=== PATIENT | male | born 1990 | race Caucasian/White ===

== ENCOUNTER 2016-03-26 13:34 | Emergency (ER) | payer MEDICAID ==
[~2016-03-26] VITALS: Ht 172.7 cm; Wt 85.0 kg
[~2016-03-26 13:34] MED LIST: METF-382 PO; METF-385 PO; METO10TA92 PO; PANT40TA3 PO
[2016-03-26 13:40] VITALS: Ht 172.7 cm; Wt 85.0 kg
[2016-03-26] MEDS ORDERED: HYDROmorphONE 2 MG/ML SYG IM STA (13:46)
[2016-03-26] MEDS ORDERED: ONDANSETRON (ODT) 4 MG TAB ODT STA (13:46)
[2016-03-26] MEDS ORDERED: METF-480 PO (14:08)
--- NOTE | 2016-03-26 14:25 | RADRPT ---
PROCEDURE: Left hip series CLINICAL INDICATION: Trauma and pain. TECHNIQUE: 2 views. COMPARISON: None FINDINGS: No fractures are noted. No dislocations are visualized. The hip joint is well maintained. No erosions or irregularity are noted. No subchondral lucencies are visualized. The soft tissues are unremarkable. IMPRESSION: 1. No bony abnormalities are identified. RPTAT: HH .Bear Green MD, MD Date Time Electronically viewed and signed by .Bear Green MD, on 03/26/2016 14:24 .G/
[2016-03-26] MEDS ORDERED: IBUP-1542 PO (14:57)
--- NOTE | 2016-03-26 15:06 | ERD ---
ER Documentation Chief Complaint Date/Time DATE: 03/26/16 TIME: 15:04 Chief Complaint BROUGHT IN VIA EMS DUE TO BACK PAIN DUE TO FALL HPI Patient is a 25-year-old male with diabetes and back pain who presents with left -sided hip pain. He was brought in by ambulance. He had a slip on a wet towel and a fall 1945 minutes ago. He has a history of chronic back pain. He denies incontinence. He denies fevers. He has had no treatment as of yet. Upon review of old medical records this is the patient's first visit to the ER. Review of the emergency department information exchange shows no other visits. He does not know the name of his primary doctor and does not have a pain management doctor. ROS All systems reviewed and are negative except as per history of present illness. Medications Home Meds Active Scripts Ibuprofen* (Motrin*) 600 Mg Tab, 600 MG PO Q6H Y for PAIN AND OR ELEVATED TEMP, #30 TAB Prov:CATALINA DALEY MD 03/26/16 Reported Medications Metformin* (Glucophage*) 850 Mg Tablet, 850 MG PO BID, #30 TAB 03/26/16 Allergies Allergies: Coded Allergies: No Known Allergy (Unverified , 03/26/16) PMhx/Soc History of Surgery: No Anesthesia Reaction: No Hx Miscellaneous Medical Probl: Yes (DM, chronic back pain x2 years) Hx Alcohol Use: No Hx Substance Use: No Hx Tobacco Use: No Smoking Status: Never smoker FmHx Family History: diabetes Physical Exam Vitals Vital Signs Date Time Temp Pulse Resp B/P Pulse Ox O2 Delivery O2 Flow Rate FiO2 03/26/16 13:40 98.2 88 18 130/75 98 Physical Exam Const: Moderate distress secondary to pain Head: Atraumatic Eyes: Normal Conjunctiva ENT: Normal External Ears, Nose and Mouth. Neck: Full range of motion..~ No meningismus. Resp: Clear to auscultation bilaterally Cardio: Regular rate and rhythm, no murmurs Abd: Soft, non tender, non distended. Normal bowel sounds Skin: Bruising over the left hip Back: No midline or flank tenderness Ext: Pain with passive range of motion of the left hip without shortening or rotation Neur: Awake and alert Psych: Normal Mood and Affect Results 24 hrs Current Medications Medications (Trade) Dose Ordered Sig/Kiana Route PRN Reason Start Time Stop Time Status Last Admin Dose Admin Hydromorphone HCl (Dilaudid) 2 mg ONCE STAT IM 03/26/16 13:46 03/26/16 13:48 DC 03/26/16 13:57 Ondansetron HCl (Zofran Odt) 4 mg ONCE STAT ODT 03/26/16 13:46 03/26/16 13:48 DC 03/26/16 13:57 Procedures/MDM X-ray of the left hip negative per radiology. Patient is a 25-year-old male who presents with left-sided hip pain after a slip and fall. The patient was given Dilaudid for pain and feels better. X- ray shows no fracture or dislocation. He has full range of motion. At this point I believe outpatient management is appropriate. I doubt fracture or dislocation. I doubt serious traumatic injury. The patient can return for any worsening symptoms. The patient should follow-up with her primary doctor within 24-48 hours. Departure Diagnosis: Primary Impression: Hip pain Laterality: left Qualified Code: M25.552 - Pain of left hip joint Additional Impression: Back pain Back pain location: low back pain Chronicity: acute Back pain laterality: left Sciatica presence: without sciatica Qualified Code: M54.5 - Acute left- sided low back pain without sciatica Condition: Fair Patient Instructions: Back Pain (Acute Or Chronic), Hip Strain [facility] Usted se shipley hecho un examen mdico de control que le indica que no est en jose condicin que requiera tratamiento urgente en el Departamento de Emergencia. Un estudio ms profundo y el tratamiento de haley condicin pueden esperar sin ningn riesgo hasta que usted sea atendida/o en el consultorio de haley mdico o jose cl sachin. Es responsabilidad suya arreglar jose dayo para el seguimiento del dorcas. MANEJO DE CONDICIONES NO URGENTES EN EL FUTURO 1) Si usted tiene un mdico de atencin primaria: Usted debera llamar a haley mdico de atencin primaria antes de venir al departamento de emergencia. Despus de las horas de consultorio, haley doctor o haley asociado/a est disponible por telfono. El mdico o enfermero de randa en el servicio telefnico puede asesorarle por dwayne medio para atender el problema, o dorcas contrario se puede programar jose dayo. 2) Si usted no tiene un mdico de atencin primaria: Llame al mdico o clnica de referencia que aparece abajo laura las horas de consultorio para hacer jose dayo para que le vean. CLINICAS: [facility] [phone] [facility] [phone] [facility] [phone] [place] [phone] [place] [phone] [facility]. [phone] Additional Instructions: Llame al doctor MAANA y scott jose DAYO PARA DENTRO DE 1-2 WADE.Dgale a la secretaria que nosotros le instruimos hacer esta dayo.Avise o llame si haley condicin se empeora antes de la dayo. Regresa aqui si peor o no mejor. CATALINA DALEY MD Mar 26, 2016 15:06
== END 2016-03-26 15:11 | disposition home or self-care (01) ==
LOC: E/R 13:34 → MERGE 13:34 → E/R 15:11
DX: S79.912A Unspecified injury of left hip, initial encounter (principal); E11.9 Type 2 diabetes mellitus without complications; S39.92XA Unspecified injury of lower back, initial encounter; W01.0XXA Fall on same level from slipping, tripping and stumbling without subsequent striking against object, initial encounter; Y92.9 Unspecified place or not applicable; Z79.84 Long term (current) use of oral hypoglycemic drugs
CPT/HCPCS: 73510; 96372; J1170; Z7502; Z7610

== ENCOUNTER 2017-12-20 14:52 | Emergency (ER) | END 2017-12-20 16:34 | disposition home or self-care (01) ==

== ENCOUNTER 2018-01-30 08:37 | Emergency (ER) | END 2018-01-30 11:27 | disposition home or self-care (01) ==

== ENCOUNTER 2018-03-30 05:18 | Emergency (ER) | payer OTHER ==
[~2018-03-30] VITALS: Ht 172.7 cm; Wt 84.1 kg
[~2018-03-30 05:18] MED LIST changes: +IBUP-1542 PO; -METF-382 PO; -METF-385 PO; -METO10TA92 PO; +NPH SQ; +ONDA4TAB14 PO; -PANT40TA3 PO
[2018-03-30 05:20] VITALS: Ht 172.7 cm; Wt 84.1 kg
[2018-03-30] MEDS ORDERED: SOD CHLORIDE 0.9% 1,000 ML IV STA (06:14)
[2018-03-30] MEDS ORDERED: KETOROLAC 30 MG INJ IV STA (06:14)
[2018-03-30] MEDS ORDERED: INSULIN LISPRO 100 UNIT/ML VIAL SC ONE (07:00)
--- NOTE | 2018-03-30 07:45 | ERD ---
ER Documentation Chief Complaint Chief Complaint R sided tingling sensation w/R eye pressure since 0300;hx DM&herniated disc HPI Patient is a 27-year-old male with a history of diabetes and herniated disc who presents with blurry vision. The patient has blurry vision in the right eye and feels numbness in the right half of his body. He feels itchiness to his skin as well. It started at 3 AM but it was still present. He has no weakness. He has had a similar issue with his eye in the past which usually has gotten better quickly but this episode lasted longer. He has supposed to wear glasses but does not wear glasses. Upon review of old medical records this is the patient's 14th visit to the ER since 2013. He does have a primary doctor. ROS All systems reviewed and are negative except as per history of present illness. Medications Home Meds Active Scripts Ondansetron (Ondansetron Odt) 4 Mg Tab.rapdis, 4 MG PO Q6H PRN for NAUSEA AND/OR VOMITING, #10 TAB Prov:CATALINA DALEY MD 01/30/18 Ibuprofen* (Motrin*) 600 Mg Tab, 600 MG PO Q6H PRN for PAIN AND OR ELEVATED TEMP, #30 TAB Prov:CATALINA DALEY MD 01/30/18 Reported Medications Insulin Human Nph (Novolin-N) 100 Units/Ml Susp, 5 UNITS SQ QHS 01/30/18 Allergies Allergies: Coded Allergies: No Known Allergy (Unverified , 01/30/18) PMhx/Soc History of Surgery: No Anesthesia Reaction: No Hx Neurological Disorder: No Hx Respiratory Disorders: No Hx Cardiac Disorders: No Hx Psychiatric Problems: No Hx Miscellaneous Medical Probl: Yes (DM) Hx Alcohol Use: No Hx Substance Use: No Hx Tobacco Use: No Smoking Status: Never smoker FmHx Family History: diabetes Physical Exam Vitals Vital Signs Date Temp Pulse Resp B/P (MAP) Pulse Ox O2 O2 Flow FiO2 Time Delivery Rate 03/30/18 98.0 70 14 119/72 100 Room Air 06:05 (88) 03/30/18 97.8 76 18 115/70 100 05:20 (85) Physical Exam Const: No acute distress Head: Atraumatic Eyes: Normal Conjunctiva, able to count fingers with both eyes at 2 feet without difficulty, extraocular movements are intact, pupils are equal and round and reactive to light ENT: Normal External Ears, Nose and Mouth. Neck: Full range of motion. No meningismus. Resp: Clear to auscultation bilaterally Cardio: Regular rate and rhythm, no murmurs Abd: Soft, non tender, non distended. Normal bowel sounds Skin: No petechiae or rashes Back: No midline or flank tenderness Ext: No cyanosis, or edema Neur: Awake and alert, cranial nerves II through XII are intact, strength is 5 out of 5 in all 4 extremities, equal replanter strength, no slurred speech Psych: Normal Mood and Affect Result Diagram: 03/30/18 0600 03/30/18 0600 Results 24 hrs Laboratory Tests Test 03/30/18 06:00 03/30/18 06:26 White Blood Count 6.9 10^3/ul Red Blood Count 5.43 10^6/ul Hemoglobin 15.5 g/dl Hematocrit 44.9 % Mean Corpuscular Volume 82.7 fl Mean Corpuscular Hemoglobin 28.5 pg Mean Corpuscular Hemoglobin Concent 34.5 g/dl Red Cell Distribution Width 12.6 % Platelet Count 234 10^3/UL Mean Platelet Volume 12.1 fl Immature Granulocytes % 0.300 % Neutrophils % 67.9 % Lymphocytes % 24.0 % Monocytes % 5.9 % Eosinophils % 1.2 % Basophils % 0.7 % Nucleated Red Blood Cells % 0.0 /100WBC Immature Granulocytes # 0.020 10^3/ul Neutrophils # 4.7 10^3/ul Lymphocytes # 1.7 10^3/ul Monocytes # 0.4 10^3/ul Eosinophils # 0.1 10^3/ul Basophils # 0.1 10^3/ul Nucleated Red Blood Cells # 0.0 10^3/ul Prothrombin Time 12.0 Sec Prothrombin Time Ratio 0.9 INR International Normalized Ratio 0.88 Activated Partial Thromboplast Time 26.3 Sec Sodium Level 141 mmol/L Potassium Level 4.0 mmol/L Chloride Level 102 mmol/L Carbon Dioxide Level 26 mmol/L Anion Gap 13 Blood Urea Nitrogen 11 mg/dl Creatinine 0.50 mg/dl Est Glomerular Filtrat Rate mL/min > 60 mL/min Glucose Level 412 mg/dl Calcium Level 9.8 mg/dl Urine Color STRAW Urine Clarity CLEAR Urine pH 7.0 Urine Specific [place] 1.033 Urine Ketones TRACE mg/dL Urine Nitrite NEGATIVE mg/dL Urine Bilirubin NEGATIVE mg/dL Urine Urobilinogen NEGATIVE mg/dL Urine Leukocyte Esterase NEGATIVE Kelly/ul Urine Hemoglobin NEGATIVE mg/dL Urine Glucose 3+ mg/dL Urine Total Protein NEGATIVE mg/dl Urine Opiates Screen Negative Urine Barbiturates Negative Urine Amphetamines Screen Negative Urine Benzodiazepines Screen Negative Urine Cocaine Screen Negative Urine Cannabinoids Negative Current Medications Medications Dose Sig/Kiana Start Time Status Last (Trade) Ordered Route PRN Stop Time Admin Dose Reason Admin Sodium 1,000 ml @ Q1H STAT 03/30/18 DC 03/30/18 Chloride 1,000 mls/hr IV 06:14 06:46 03/30/18 07:13 Ketorolac 30 mg ONCE STAT 03/30/18 DC 03/30/18 Tromethamine IV 06:14 06:46 (Toradol) 03/30/18 06:16 Insulin 10 unit ONCE ONCE 03/30/18 DC 03/30/18 Human SC 07:00 07:01 Lispro 03/30/18 07:01 (Humalog) Procedures/MDM CT brain negative per radiology. Patient is a 27-year-old male with diabetes who presents with blurry vision in the right eye. He feels like the vision has improved with fluids and insulin as his sugars come down. His sugar was over 400. He has no signs of diabetic ketoacidosis but there is hyperglycemia. The patient will need to follow-up with his primary doctor within 24-48 hours and I also have given him information for the [facility] which she should follow-up with within 24 hours. The patient can return for any worsening symptoms. The patient understands the plan and is okay for discharge at this time. I doubt stroke, intracranial mass, or intracranial hemorrhage. Departure Diagnosis: Primary Impression: Blurry vision Additional Impression: Hyperglycemia Condition: Fair Patient Instructions: Hyperglycemia (High Blood Sugar), Blurred Vision Referrals: [facility] Hours: Tue - Tue 9:00 AM - 5:00 PM Additional Instructions: Call your primary care doctor TOMORROW for an appointment during the next 1-2 days.See the doctor sooner or return here if your condition worsens before your appointment time. CATALINA DALEY MD Mar 30, 2018 07:45
[2018-03-30 08:09] VITALS: BP 123/85; PULSE 78; RESP 20
== END 2018-03-30 08:10 | disposition home or self-care (01) ==
LOC: E/R 05:18
DX: H53.8 Other visual disturbances (principal); E11.65 Type 2 diabetes mellitus with hyperglycemia; Z79.4 Long term (current) use of insulin
CPT/HCPCS: 36415; 70450; 80048; 80307; 81003; 82962; 85025; 85610; 85730; 96372; 96374; J1815; J1885; J7030; Z7502

== ENCOUNTER 2018-11-22 08:32 | Emergency (ER) | payer OTHER ==
[~2018-11-22] VITALS: Ht 162.6 cm; Wt 89.0 kg
[~2018-11-22 08:32] MED LIST changes: +ACET325T33 PO; +CIPR500T4 PO; -IBUP-1542 PO; +METF100010 PO; +METR500T PO; -NPH SQ; -ONDA4TAB14 PO
[2018-11-22 08:41] VITALS: Ht 162.6 cm; Wt 89.0 kg
[2018-11-22] MEDS ORDERED: ONDANSETRON 4 MG INJ IV STA (08:53)
[2018-11-22] MEDS ORDERED: morphine 4 MG/ML VIAL IV STA (08:53)
[2018-11-22] MEDS ORDERED: SOD CHLORIDE 0.9% 1,000 ML IV STA (08:53)
[2018-11-22] MEDS ORDERED: IOHEXOL 300MG/ML 150 ML BTL ONE (10:52)
[2018-11-22] MEDS ORDERED: SOD CHLORIDE 0.9% 100 ML ONE (10:52)
[2018-11-22 11:46] VITALS: BP 105/62; PULSE 69; RESP 18
== END 2018-11-22 11:46 | disposition home or self-care (01) ==
LOC: FTE 08:32
DX: K52.9 Noninfective gastroenteritis and colitis, unspecified (principal); E11.9 Type 2 diabetes mellitus without complications; Z79.84 Long term (current) use of oral hypoglycemic drugs
CPT/HCPCS: 36415; 71045; 74177; 80053; 81003; 83690; 84484; 85025; 93005; 96361; 96374; 96375; J2270; J2405; J7030; Q9967; Z7502; Z7610